=== PATIENT | male | born 2000 | race Two or more races ===

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

== ENCOUNTER 2021-08-08 15:27 | Emergency (ER) | payer OTHER ==
[~2021-08-08] VITALS: Ht 170.2 cm; Wt 154.0 kg
[2021-08-08] MEDS ORDERED: IV NORMAL SALINE 1000ML BAG 1,000 ML IV ONE (16:15)
[2021-08-08] MEDS ORDERED: ONDANSETRON PF 4 MG/2 ML VIAL. IVP ONE (16:15)
[2021-08-08 16:28] LABS: AMPHETAMINE/METHAMPHETAMINE NEG (NEG); BARBITURATES NEG (NEG); BENZODIAZEPINES NEG (NEG); CANNABINOIDS POS (NEG); COCAINE NEG (NEG); METHADONE NEG (NEG); OPIATES NEG (NEG); PHENCYCLIDINE NEG (NEG)
[2021-08-08 16:30] LABS: BACTERIA,URINE 0 /HPF (0-FEW); WBC,URINE OCC /HPF (0-4)
[2021-08-08 16:34] LABS: CALCIUM 9.2 mg/dL (8.5-10.1); GFR 96.3; POTASSIUM 3.9 mmol/L (3.5-5.1)
[2021-08-08 16:40] LABS: ALBUMIN 4.5 g/dL (3.4-5.0); ALBUMIN/GLOBULIN RATIO 1.1 (1.0-1.7); BASO # 0.1 x10^3/uL (0.0-0.2); BASO % 0 % (0-3); EOS # 0.1 x10^3/uL (0.0-0.7); EOS % 1 % (0-3); HEMATOCRIT 50.7 % (39.0-53.0); HEMOGLOBIN 16.7 g/dL (13.0-17.5); LYMPH # 2.4 x10^3/uL (1.0-4.8); LYMPH % 13 % (24-48); MAGNESIUM 2.4 mg/dL (1.8-2.4); MEAN CORPUSCULAR HEMOGLOBIN 28 pg (25-35); MEAN CORPUSCULAR HGB CONC 33 g/dL (31-37); MEAN CORPUSCULAR VOLUME 86 fL (79-100); MONO # 2.1 x10^3/uL (0.0-1.1); MONO % 11 % (0-9); NEUT # 13.9 x10^3/uL (1.8-7.7); NEUT % 75 % (31-73); PLATELET COUNT 375 x10^3/uL (140-400); RED BLOOD COUNT 5.93 x10^6/uL (4.30-5.70); RED CELL DISTRIBUTION WIDTH 14.5 % (11.5-14.5); TOTAL BILIRUBIN 0.5 mg/dL (0.2-1.0); TOTAL PROTEIN 8.7 g/dL (6.4-8.2); WHITE BLOOD COUNT 18.6 x10^3/uL (4.0-11.0)
--- NOTE | 2021-08-08 16:40 | RAD ---
XR CHEST 1V History: Reason: Upper abdominal pain, diaphoresis / Spl. Instructions: / History: Comparison: None. Findings: No consolidation or pleural effusion. Normal heart size. No pneumothorax. Impression: 1. No acute cardiopulmonary process. Electronically signed by: Tao Arizmendi DO (08/08/2021 4:37 PM) [id number]
--- NOTE | 2021-08-08 16:51 | RAD ---
EXAM: ULTRASOUND ABDOMEN COMPLETE CLINICAL HISTORY: Reason: Upper left and right abdominal pain / Spl. Instructions: / History: COMPARISON: None available. TECHNIQUE: Ultrasound of the upper abdomen was performed. FINDINGS: Liver contour is normal. Increased echogenicity of the liver. Hepatopedal flow noted in the portal ve in. Gallbladder is partially distended without pericholecystic fluid or wall thickening identified. No ga llstones are seen. Spleen measures 12.8 cm in long axis. Right kidney measures 12.5 cm in long axis. No hydronephrosis. Kidney is not well seen. Left kidney measures 12.8 cm in long axis. No hydronephrosis. Kidneys not well seen. Aorta and IVC are not well seen. Pancreas is not seen. IMPRESSION: 1. Evaluation limited secondary to body habitus. 2. Diffuse hepatic steatosis. 3. No sonographic evidence for acute cholecystitis. 4. No hydronephrosis. 5. Spleen is at the upper limits of normal in size. Electronically signed by: Esperanza Underwood MD (08/08/2021 4:48 PM) [facility]
[2021-08-08] MEDS ORDERED: IOHEXOL 300 MG/ML 100ML VIAL. IV ONE (17:00)
[2021-08-08] MEDS ORDERED: CONTRAST GIVEN. MC PRN (17:00)
[2021-08-08 17:06] LABS: INFLUENZA A PATIENT NEGATIVE (NEGATIVE); INFLUENZA B PATIENT NEGATIVE (NEGATIVE)
--- NOTE | 2021-08-08 17:19 | RAD ---
Exam: CT head INDICATION: Severe headaches, diaphoresis TECHNIQUE: Sequential axial images through the head were obtained without the administration of IV co ntrast. Exposure: One or more of the following in the visualized dose reduction techniques were utilized for this examination: 1. Automated exposure control 2. Adjustment of the MA and/or KV according to patient size 3. Use of iterative of reconstructive technique Comparisons: None FINDINGS: No focal parenchymal lesion or hemorrhage is identified. There is no midline shift or sulcal effaceme nt. No acute vascular territory infarction is identified. Jaimes-white distinction is preserved. The ventricular system is within normal limits without compression hydrocephalus. The basal cisterns are well maintained. The visualized portions of the paranasal sinuses and mastoid air cells are well-pneumatized. No acute fractures. IMPRESSION: No acute intracranial abnormality. Electronically signed by: Esperanza Underwood MD (08/08/2021 5:17 PM) [facility]
--- NOTE | 2021-08-08 17:23 | RAD ---
Exam Date: 08/08/2021 4:[address] ABDOMEN+PELVIS W Indication: Reason: Upper abdominal pain, diaphoresis / Spl. Instructions: IV omni 300 75 mls / Histo ry: . TECHNIQUE: CT examination of the abdomen and pelvis was performed following the administration of no nionic intravenous contrast. One or more of the following dose reduction techniques were utilized: *Automated exposure control (AEC) *Adjustment of mA and/or kV according to patient size *Use of iterative reconstruction technique *CT scan done according to ALARA, or ALARA/IMAGE GENTLY FINDINGS: The visualized lung bases are clear. The liver, gallbladder, spleen, pancreas, adrenal glands and kidneys are normal. Urinary bladder is normal in appearance. Diverticulosis coli is seen without bowel obstruction or inflammation. The appendix is normal. No significant atherosclerotic calcifications are seen. No lymphadenopathy or ascites is seen. Osseous structures are intact. IMPRESSION: No evidence of acute intra-abdominal pathology. Electronically signed by: Aneesh Lassiter MD (08/08/2021 5:21 PM) [facility]
[2021-08-08 17:52] LABS: % ATYL 1 % (0-0); % EOS 1 % (0-5); % LYMPHS 13 % (24-48); % MONOS 15 % (0-10); % SEGS 70 % (35-66); PLT ESTIMATE ADEQUATE (ADEQUATE)
[2021-08-08 18:03] VITALS: BP 149/86
[2021-08-08] MEDS ORDERED: ONDA4TAB12 PO (18:26)
--- NOTE | 2021-08-08 18:27 | PHYS DOC ---
Past Medical History Past Medical History: No Pertinent History Additional Past Medical Histor: "HEART PALPATATIONS" Past Surgical History: No Surgical History Smoking Status: Never Smoker Alcohol Use: Occasionally Drug Use: None General Adult EDM: Chief Complaint: ABDOMINAL PAIN HPI: HPI: Patient is a 20-year-old male presents to the emergency department complaining of nausea vomiting headaches and intermittent fevers for the past 3 weeks. Patient states he throws up every time he eats. Reports upper abdominal pain that radiates from the left side to the right side of his upper abdomen. Patient denies seeing blood in his vomitus, reports food particles and water. Patient denies diarrhea, denies seeing blood in his stool, reports normal bowel movement today. Patient reports a 5 out of 10 headache on the right side of his head, denies this being the worst headache of his life however has not gone away in 3 weeks. Patient denies chest pain, chest or nasal congestion, denies chest palpitations. Patient denies syncopal or near syncopal episodes, denies dizz iness. Patient reports she has been vaccinated for the COVID-19 virus and flu virus this season. Reports he smokes cigarettes and drinks alcohol only on occasion when he is out or at a [employer], reports last drink or smoke about a month ago. Denies illicit drug use, denies IV drug use. Patient states he takes no medications at home. Sees a Dr. Werner for primary care. Patient denies other physical complaints or physical concerns. Review of Systems: Review of Systems: 14 body systems of review of systems have been reviewed. See HPI for pertinent positives and negative responses, otherwise all other systems are negative, nonpertinent or noncontributory. Constitutional: Negative except as outlined in HPI above. Skin: Negative except as outlined in HPI above. Eyes: Negative except as outlined in HPI above. HENT: Negative except as outlined in HPI above. Respiratory: Negative except as outlined in HPI above. Cardiovascular: Negative except as outlined in HPI above. GI: Negative except as outlined in HPI above. : Negative except as outlined in HPI above. Musculoskeletal: Negative except as outlined in HPI above. Integument: Negative except as outlined in HPI above. Neurologic: Negative except as outlined in HPI above. Endocrine: Negative except as outlined in HPI above. Lymphatic: Negative except as outlined in HPI above. Psychiatric: Negative except as outlined in HPI above. Heart Score: C/O Chest Pain: No Risk Factors: Risk Factors: DM, Current or recent (<one month) smoker, HTN, HLP, family history of CAD, obesity. Risk Scores: Score 0 - 3: 2.5% MACE over next 6 weeks - Discharge Home Score 4 - 6: 20.3% MACE over next 6 weeks - Admit for Clinical Observation Score 7 - 10: 72.7% MACE over next 6 weeks - Early Invasive Strategies Current Medications: Current Medications Medications (Trade) Dose Ordered Sig/Enma Start Time Stop Time Status Last Admin Dose Admin Info (CONTRAST GIVEN -- Rx MONITORING) 1 each PRN DAILY PRN 08/08/21 17:00 08/10/21 16:59 Iohexol (Omnipaque 300 Mg/ml) 75 ml 1X ONCE 08/08/21 17:00 08/08/21 17:01 DC 08/08/21 17:06 75 ML Ondansetron HCl (Zofran) 4 mg 1X ONCE 08/08/21 16:15 08/08/21 16:18 DC 08/08/21 16:36 4 MG Sodium Chloride 1,000 ml @ 1,000 mls/hr 1X ONCE 08/08/21 16:15 08/08/21 17:14 DC 08/08/21 16:34 1,000 MLS/HR Allergies: Allergies: Allergies Coded Allergies Type Severity Reaction Last Updated Verified No Known Drug Allergies 12/02/19 No Physical Exam: PE: Constitutional: Well developed, well nourished, no acute distress, non-toxic appearance. [] HENT: Normocephalic, atraumatic, bilateral external ears normal, oropharynx moist, no oral exudates, nose normal. [] Eyes: PERRLA, EOMI, conjunctiva normal, no discharge. [] Neck: Normal range of motion, no tenderness, supple, no stridor. [] Cardiovascular:Heart rate regular rhythm, no murmur [] Lungs & Thorax: Bilateral breath sounds clear to auscultation [] Abdomen: Bowel sounds normal, soft, no tenderness, no masses, no pulsatile masses. [] Skin: Warm, dry, no erythema, no rash. [] Back: No tenderness, no CVA tenderness. [] Extremities: No tenderness, no cyanosis, no clubbing, ROM intact, no edema. [] Neurologic: Alert and oriented X 3, normal motor function, normal sensory function, no focal deficits noted. [] Psychologic: Affect normal, judgement normal, mood normal. [] Current Patient Data: Labs: Laboratory Tests Test 08/08/21 15:38 08/08/21 15:50 08/08/21 16:02 08/08/21 16:40 Glucose (Fingerstick) 140 mg/dL (70-99) H Urine Collection Type Unknown Urine Color (Auto) Yellow Urine Turbidity Clear Urine pH (Auto) 6.0 (<5.0-8.0) Urine Specific [place] 1.032 (1.000-1.030) Urine Protein (Auto) 30 mg/dL (Negative) Urine Glucose (Auto)(UA) Negative mg/dL (Negative) Urine Ketones (Auto) Trace mg/dL (Negative) Urine Blood (Auto) Moderate (Negative) Urine Nitrite Negative (Negative) Urine Bilirubin (Auto) Negative (Negative) Urine Urobilinogen (Auto) 3 mg/dL (Normal) Urine Leukocyte Esterase (Auto) Negative (Negative) Urine RBC 11-20 /HPF (0-2) Urine WBC Occ /HPF (0-4) Urine Squamous Epithelial Cells Few /LPF Urine Bacteria 0 /HPF (0-FEW) Urine Mucus Marked /LPF Urine Opiates Screen Neg (NEG) Urine Methadone Screen Neg (NEG) Urine Barbiturates Neg (NEG) Urine Phencyclidine Screen Neg (NEG) Urine Amphetamine/Methamphetamine Neg (NEG) Urine Benzodiazepines Screen Neg (NEG) Urine Cocaine Screen Neg (NEG) Urine Cannabinoids Screen Pos (NEG) Urine Ethyl Alcohol Neg (NEG) White Blood Count 18.6 x10^3/uL (4.0-11.0) H Red Blood Count 5.93 x10^6/uL (4.30-5.70) H Hemoglobin 16.7 g/dL (13.0-17.5) Hematocrit 50.7 % (39.0-53.0) Mean Corpuscular Volume 86 fL (79-100) Mean Corpuscular Hemoglobin 28 pg (25-35) Mean Corpuscular Hemoglobin Concent 33 g/dL (31-37) Red Cell Distribution Width 14.5 % (11.5-14.5) Platelet Count 375 x10^3/uL (140-400) Neutrophils (%) (Auto) 75 % (31-73) H Lymphocytes (%) (Auto) 13 % (24-48) L Monocytes (%) (Auto) 11 % (0-9) H Eosinophils (%) (Auto) 1 % (0-3) Basophils (%) (Auto) 0 % (0-3) Neutrophils # (Auto) 13.9 x10^3/uL (1.8-7.7) H Lymphocytes # (Auto) 2.4 x10^3/uL (1.0-4.8) Monocytes # (Auto) 2.1 x10^3/uL (0.0-1.1) H Eosinophils # (Auto) 0.1 x10^3/uL (0.0-0.7) Basophils # (Auto) 0.1 x10^3/uL (0.0-0.2) Segmented Neutrophils % 70 % (35-66) H Lymphocytes % 13 % (24-48) L Atypical Lymphocytes % (Manual) 1 % (0-0) H Monocytes % 15 % (0-10) H Eosinophils % 1 % (0-5) Platelet Estimate Adequate (ADEQUATE) Sodium Level 138 mmol/L (136-145) Potassium Level 3.9 mmol/L (3.5-5.1) Chloride Level 101 mmol/L (98-107) Carbon Dioxide Level 27 mmol/L (21-32) Anion Gap 10 (6-14) Blood Urea Nitrogen 16 mg/dL (8-26) Creatinine 1.0 mg/dL (0.7-1.3) Estimated GFR (Cockcroft-Gault) 96.3 BUN/Creatinine Ratio 16 (6-20) Glucose Level 115 mg/dL (70-99) H Calcium Level 9.2 mg/dL (8.5-10.1) Magnesium Level 2.4 mg/dL (1.8-2.4) Total Bilirubin 0.5 mg/dL (0.2-1.0) Aspartate Amino Transferase (AST) 18 U/L (15-37) Alanine Aminotransferase (ALT) 29 U/L (16-63) Alkaline Phosphatase 135 U/L (46-116) H Troponin I High Sensitivity 5 ng/L (4-75) Total Protein 8.7 g/dL (6.4-8.2) H Albumin 4.5 g/dL (3.4-5.0) Albumin/Globulin Ratio 1.1 (1.0-1.7) Lipase 92 U/L (73-393) Acetone Level Neg (NEG) Influenza Type A Antigen Negative (NEGATIVE) Influenza Type B Antigen Negative (NEGATIVE) SARS-CoV-2 Antigen (Rapid) Negative (NEGATIVE) Laboratory Tests 08/08/21 16:02 Laboratory Tests 08/08/21 16:02 Vital Signs: Vital Signs Date Time Temp Pulse Resp B/P (MAP) Pulse Ox O2 Delivery O2 Flow Rate FiO2 08/08/21 18:03 85 16 149/86 (107) 98 Room Air 08/08/21 15:30 98.6 98.6 EKG: EKG: EKG performed at 1641 by ED nursing staff shows a normal sinus rhythm without ot her ectopy, heart rate 86 bpm, OK interval 0.160, QTc interval 0.419, no acute STEMI, no ACS, no acute ischemia appreciated, EKG interpreted by ED attending physician Dr. Raymond. Radiology/Procedures: Radiology/Procedures: REASON: Upper left and right abdominal pain PROCEDURE: ABDOMEN COMPLETE EXAM: ULTRASOUND ABDOMEN COMPLETE CLINICAL HISTORY: Reason: Upper left and right abdominal pain / Spl. Instructions: / History: COMPARISON: None available. TECHNIQUE: Ultrasound of the upper abdomen was performed. FINDINGS: Liver contour is normal. Increased echogenicity of the liver. Hepatopedal flow noted in the portal vein. Gallbladder is partially distended without pericholecystic fluid or wall thickening identified. No gallstones are seen. Spleen measures 12.8 cm in long axis. Right kidney measures 12.5 cm in long axis. No hydronephrosis. Kidney is not well seen. Left kidney measures 12.8 cm in long axis. No hydronephrosis. Kidneys not well seen. Aorta and IVC are not well seen. Pancreas is not seen. IMPRESSION: 1. Evaluation limited secondary to body habitus. 2. Diffuse hepatic steatosis. 3. No sonographic evidence for acute cholecystitis. 4. No hydronephrosis. 5. Spleen is at the upper limits of normal in size. Electronically signed by: Esperanza Underwood MD (08/08/2021 4:48 PM) [facility] REASON: Severe headaches, diaphoresis PROCEDURE: CT HEAD WO CONTRAST Exam: CT head INDICATION: Severe headaches, diaphoresis TECHNIQUE: Sequential axial images through the head were obtained without the administration of IV contrast. Exposure: One or more of the following in the visualized dose reduction techniques were utilized for this examination: 1. Automated exposure control 2. Adjustment of the MA and/or KV according to patient size 3. Use of iterative of reconstructive technique Comparisons: None FINDINGS: No focal parenchymal lesion or hemorrhage is identified. There is no midline shift or sulcal effacement. No acute vascular territory infarction is identified. Jaimes-white distinction is preserved. The ventricular system is within normal limits without compression hydrocephalus. The basal cisterns are well maintained. The visualized portions of the paranasal sinuses and mastoid air cells are well- pneumatized. No acute fractures. IMPRESSION: No acute intracranial abnormality. Electronically signed by: Esperanza Underwood MD (08/08/2021 5:17 PM) [facility] REASON: Upper abdominal pain, diaphoresis PROCEDURE: CHEST AP ONLY XR CHEST 1V History: Reason: Upper abdominal pain, diaphoresis / Spl. Instructions: / Histo ry: Comparison: None. Findings: No consolidation or pleural effusion. Normal heart size. No pneumothorax. Impression: 1. No acute cardiopulmonary process. Electronically signed by: Tao Arizmendi DO (08/08/2021 4:37 PM) [id number] STATUS: REG ER ORD. PHYSICIAN: NATALIA BEDOLLA APRN REASON: Upper abdominal pain, diaphoresis PROCEDURE: CT ABD PELV W/ IV CONTRST ONLY Exam Date: 08/08/2021 4:[address] ABDOMEN+PELVIS W Indication: Reason: Upper abdominal pain, diaphoresis / Spl. Instructions: IV omni 300 75 mls / History: . TECHNIQUE: CT examination of the abdomen and pelvis was performed following the administration of nonionic intravenous contrast. One or more of the following dose reduction techniques were utilized: *Automated exposure control (AEC) *Adjustment of mA and/or kV according to patient size *Use of iterative reconstruction technique *CT scan done according to ALARA, or ALARA/IMAGE GENTLY FINDINGS: The visualized lung bases are clear. The liver, gallbladder, spleen, pancreas, adrenal glands and kidneys are normal. Urinary bladder is normal in appearance. Diverticulosis coli is seen without bowel obstruction or inflammation. The appendix is normal. No significant atherosclerotic calcifications are seen. No lymphadenopathy or ascites is seen. Osseous structures are intact. IMPRESSION: No evidence of acute intra-abdominal pathology. Electronically signed by: Aneesh Lassiter MD (08/08/2021 5:21 PM) [facility] Course & Med Decision Making: Course & Med Decision Making Pertinent Labs and Imaging studies reviewed. (See chart for details) 20-year-old male, vital signs reviewed, presents emerged from concerning 3 weeks of nausea vomiting intermittent fevers and headaches. Physical examination concerning for acute abdominal process. Will order CT head related to headache x3 weeks without relief of medications, chest x-ray, EKG, saline lock, CT abdomen pelvis with IV contrast, CBC, CMP, lipase, magnesium level, NT proBNP, high-sensitivity troponin I, rapid flu and COVID-19 testing, acetone level, urine drugs of abuse, will give 1 L normal saline, ondansetron. Will consider pain medications pending head CT. Patient's urine drug screen is negative, patient's urine is not infected, EKG, cardiac enzymes within normal limits, lipase within normal limits, patient does have elevated white blood cell count of 18.9, this is without bandemia, suspicious for stress response. Upon reevaluation of the patient, patient reports he has a headache less than 2 or 3 out of 10, reports nausea has been relieved, reports abdominal pain is down to a 1 or 2. I ED work-up with patient, recommended admission for intractable abdominal pain, recommended serial abdominal exams under observation and consideration for additional imaging. Patient has refused this stating that he has a job interview tomorrow wishes to go home. Reviewed with patient he would be leaving AGAINST MEDICAL ADVICE, discussed risk versus benefits of staying for admission versus leaving AGAINST MEDICAL ADVICE. The patient has decided to leave our facility against medical advice. I have assessed patient's ability to make informed decision and feel the patient has the capacity to comprehend information regarding the current medical condition and appreciates the impact of the disease or condition and the consequences of various options for treatment, including foregoing treatment. The patient possesses the ability to evaluate all treatment options, comparing the risks and benefits of each option, communicate his or her choice in a consistent manner over time, and is able to make rational choices. I explained to the patient f urther testing, treatment, and evaluation I would like to perform in the emergency department visit as well as any possible alternatives that can be accomplished in a timely manner. I have outlined the possible risks of foregoing any or all of these interventions and the patient understands and ack nowledges that the decision to leave may result in undesirable consequences such as , permanent disability, and/or loss of current lifestyle. Even though leaving AMA is not ideal, I have instructed the patient to follow any discharge instructions given, take any medications prescribed, and resume care as soon as possible with another provider. This conversation was witnessed by another membe r of the emergency department staff and we clearly communicated the patient is welcome to return anytime to continue care at our facility. Dragon Disclaimer: Dragon Disclaimer: This electronic medical record was generated, in whole or in part, using a voice recognition dictation system. Departure Departure Impression: Primary Impression: Left against medical advice Additional Impressions: Headache Qualified Codes: R51.9 - Headache, unspecified Nausea and vomiting Qualified Codes: R11.2 - Nausea with vomiting, unspecified Abdominal pain Qualified Codes: R10.9 - Unspecified abdominal pain Disposition: 07 LEFT AGAINST MEDICAL ADVICE Condition: GUARDED Referrals: UNKNOWN PCP NAME (PCP) Additional Instructions: You were seen today in the emergency department for nausea, vomiting, abdominal pain, intermittent fevers, and headache for the past 3 weeks. As we discussed I have recommended admission to the hospital for ongoing evaluation of your symptoms. You have refused this recommendation. I will prescribe for you antinausea medication and sent the prescription to the pharmacy of your choice. Please reconsider this choice of leaving AGAINST MEDICAL ADVICE. Please follow-up with your primary care physician today or tomorrow. Please return to the nearest emergency department for reevaluation for worsening symptoms. Patient does not wish to proceed with medical care recommended by HERNÁN Matthew. patient given information related to possible complications, up to and including , which could occur as a result of leaving the hospital at this time. Patient verbalizes understanding of risks involved due to leaving against medical advice. Patient has signed AMA form. Scripts Ondansetron (ONDANSETRON ODT) 4 Mg Tab.rapdis 1 TAB PO PRN Q6-8HRS, #16 TAB 0 Refills Prov: NATALIA BEDOLLA APRN 08/08/21 NATALIA BEDOLLA APRN Aug 08, 2021 18:27
--- NOTE | 2021-08-09 07:22 | EKG ---
[facility] [address] [place] [address] Test Date: 2021-08-08 Test Time: 16:41:29 Pat Name: CHARLOTTE CAZARESANGEL Department: Room: Gender: M Service Vehicle Operator: : 2000 Requested By: NATALIA BEDOLLA Order Number: [id number] Reading MD: Measurements Intervals [place] Rate: 86 P: 30 NE: 160 QRS: 5 QRSD: 98 T: 13 QT: 348 QTc: 419 Interpretive Statements SINUS RHYTHM NORMAL ECG RI6.02 No previous ECG available for comparison
== END 2021-08-08 18:33 | disposition left against medical advice (07) ==
LOC: ER 15:27
DX: R11.2 Nausea with vomiting, unspecified (principal); Z20.822 Contact with and (suspected) exposure to COVID-19; R51.9 Headache, unspecified; R10.11 Right upper quadrant pain; R10.12 Left upper quadrant pain; R50.9 Fever, unspecified
CPT/HCPCS: 36415; 70450; 71045; 74177; 76700; 80053; 80307; 81001; 82010; 82962; 83690; 83735; 83880; 84484; 85007; 85025; 87428; 93005; 96361; 96374; 99285; J2405; J7030; Q9967